=== PATIENT | female | born 1995 | race African-American/Black ===

== ENCOUNTER 2017-09-14 22:25 | Emergency (ER) | payer OTHER ==
[2017-09-14 23:40] LABS: Basophils % (Auto) 0.1 % (0.0-1.8); Eosinophils # (Auto) 0.1 K/mm3 (0.0-0.4); Eosinophils % (Auto) 0.8 % (0.0-4.3); Hemoglobin 15.6 gm/dl (10.1-14.3); Lymphocytes % (Auto) 6.1 % (13.4-35.0); Mean Corpuscular HGB Conc 33 % (30-34); Mean Corpuscular Hemoglobin 30 pg (28-32); Mean Corpuscular Volume 93 fl (79-97); Monocytes # (Auto) 1.1 K/mm3 (0.0-0.8); Monocytes % (Auto) 6.6 % (0.0-7.3); Platelet Count 349 K/mm3 (140-440); Red Blood Count 5.14 M/mm3 (3.65-5.03); Red Cell Distribution Width 13.6 % (13.2-15.2)
[2017-09-14 23:57] LABS: Alanine Aminotransferase 20 units/L (7-56); Albumin 5.2 g/dL (3.9-5); BUN/Creatinine Ratio 40; Blood Urea Nitrogen 20 mg/dL (7-17); Calcium 10.5 mg/dL (8.4-10.2); Hemolysis Index 1
[2017-09-15 01:30] VITALS: BP 112/64
[2017-09-15] MEDS ORDERED: ZOFRAN IV ONE (01:33)
[2017-09-15] MEDS ORDERED: NACL 0.9% 1000 ML 1,000 ML IV ONE ×2 (01:33→04:14)
[2017-09-15] MEDS ORDERED: PEPCID IV ONE (01:34)
--- NOTE | 2017-09-15 01:59 | Emergency Department Report ---
HPI - General Chief Complaint: Abdominal Pain Time Seen by Provider: 09/15/17 01:21 - HPI HPI: 21-year-old female presents to the emergency department with complaint of nausea and vomiting as well as some periumbilical abdominal discomfort that has been going on since about 6 PM last night. She says that the vomiting has been nonstop and is gone to the point where she is vomiting up bile. She recently returned from a trip to [facility] and says that she did eat some street foods but denies that any of them were undercooked. She also says that her sister started getting some nausea this evening as well and was on the same trip. She denies any past medical history. She has a primary care physician. She denies any fever, dysuria, vaginal bleeding or discharge. She has not taken anything for her symptoms prior to presentation. ED Past Medical Hx - Past Medical History Previous Medical History?: No - Surgical History Past Surgical History?: No - Social History Smoking Status: Never Smoker Substance Use Type: None - Medications Home Medications: Home Medications Medication Instructions Recorded Confirmed Last Taken Type Ondansetron [Zofran Odt] 4 mg PO Q8H PRN #10 tab.rapdis 09/15/17 Unknown Rx ED Review of Systems ROS: Stated complaint: VOMITING / ABD PAIN Other details as noted in HPI Comment: All other systems reviewed and negative Constitutional: denies: chills, fever Eyes: denies: eye pain, eye discharge, vision change ENT: denies: ear pain, throat pain Respiratory: denies: cough, shortness of breath, wheezing Cardiovascular: denies: chest pain, palpitations Gastrointestinal: abdominal pain, nausea, vomiting Genitourinary: denies: urgency, dysuria, discharge Musculoskeletal: denies: back pain, joint swelling, arthralgia Skin: denies: rash, lesions Neurological: denies: headache, weakness, paresthesias Physical Exam - Physical Exam Vital Signs: Vital Signs 09/14/17 09/15/17 22:49 01:25 Temperature 98.3 F 99.3 F Pulse Rate 127 H 80 Respiratory 16 18 Rate Blood Pressure 112/74 Blood Pressure 112/64 [Left] O2 Sat by Pulse 98 100 Oximetry Physical Exam: GENERAL: The patient is well-developed well-nourished. HENT: Normocephalic. Atraumatic. Patient has moist mucous membranes. EYES: Extraocular motions are intact. Pupils equal reactive to light bilaterally. NECK: Supple. Trachea is midline. CHEST/LUNGS: Clear to auscultation. There is no respiratory distress noted. HEART/CARDIOVASCULAR: Regular. There is mild to moderate tachycardia. There is no murmur. ABDOMEN: Abdomen is soft. There is some mild periumbilical tenderness to palpation. No guarding. Patient has normal bowel sounds. There is no abdominal distention. SKIN: Skin is warm and dry. NEURO: The patient is awake, alert, and oriented. The patient is cooperative. The patient has no focal neurologic deficits. The patient has normal speech. MUSCULOSKELETAL: There is no tenderness or deformity. There is no limitation range of motion. There is no evidence of acute injury. ED Course Vital Signs 09/14/17 09/15/17 22:49 01:25 Temperature 98.3 F 99.3 F Pulse Rate 127 H 80 Respiratory 16 18 Rate Blood Pressure 112/74 Blood Pressure 112/64 [Left] O2 Sat by Pulse 98 100 Oximetry ED Medical Decision Making - Lab Data Result diagrams: 09/14/17 23:11 09/14/17 23:11 - Radiology Data Radiology results: report reviewed Abdominal x-ray shows nonspecific nonobstructive bowel gas. - Medical Decision Making Patient has a leukocytosis of 16,000 that may be reactive to the copious vomiting she was doing. Urinalysis does not show any urinary tract infection and the patient is not . There are no electrolyte abnormalities, renal insufficiency, glucose abnormalities. Abdominal x-ray shows nonspecific nonobstructive bowel gas. She received IV fluid resuscitation and a dose of Zofran. She was reevaluated multiple times over multiple hours and is feeling greatly improved. She was able to keep down some water and Gatorade without any further nausea or vomiting and her abdominal pain has resolved currently. She will be discharged home with Zofran ODT and encouraged follow-up with primary care. Appendicitis talk given. She has been encouraged to return to the emergency Department with any worsening of her symptoms are any acute distress. - Differential Diagnosis diverticulitis, appendicitis, , gastroenteritis, food poisoning Critical Care Time: No Critical care attestation.: If time is entered above; I have spent that time in minutes in the direct care of this critically ill patient, excluding procedure time. ED Disposition Clinical Impression: Dehydration Nausea & vomiting Qualifiers: Vomiting type: unspecified Vomiting Intractability: unspecified Qualified Code( s): R11.2 - Nausea with vomiting, unspecified Abdominal pain Qualifiers: Abdominal location: periumbilical Qualified Code(s): R10.33 - Periumbilical pain Disposition: TO HOME OR SELFCARE Is pt being admited?: No Condition: Stable Instructions: Dehydration (ED), Acute Nausea and Vomiting (ED), Abdominal Pain (ED) Additional Instructions: Please increase your oral rehydration. Return to the emergency Department with any worsening of your symptoms or with any acute distress. Follow-up with your primary care physician in the next few days. Prescriptions: Ondansetron [Zofran Odt] 4 mg PO Q8H PRN #10 tab.rapdis PRN Reason: Nausea Referrals: PRIMARY CARE, [Primary Care Provider] - 2-3 Days Forms: Work/School Release Form(ED) Time of Disposition: 04:51
[2017-09-15 04:28] LABS: Amorphous Crystals,Urine Few; Bilirubin,Urine NEG (Negative); Blood,Urine NEG (Negative); Color,Urine Yellow (Yellow); Mucus,Urine 3+ /HPF; Urobilinogen,Urine < 2.0 mg/dL (<2.0)
--- NOTE | 2017-09-18 14:23 | XRay Report ---
FINAL REPORT EXAM: XR ABDOMEN 2V HISTORY: Abd pain TECHNIQUE: Supine and upright views of abdomen. PRIORS: None. FINDINGS: No significant bowel dilatation or abnormal air fluid levels. No apparent pneumoperitoneum. No abnormal calcifications. Mild levoconvex curvature of lumbar spine. IMPRESSION: 1. Nonobstructive bowel gas pattern.
== END 2017-09-15 05:11 | disposition home or self-care (01) ==
LOC: ED 22:25
DX: E86.0 Dehydration (principal); R11.2 Nausea with vomiting, unspecified; R10.33 Periumbilical pain
CPT/HCPCS: 36415; 74019; 80053; 81001; 84703; 85025; 96361; 96374; 96375; 99283; J2405; J7030